=== PATIENT | male | born 1940 | race Caucasian/White ===

== ENCOUNTER 2016-09-14 10:23 | Day surgery (SDC) | payer MEDICARE, OTHER ==
[~2016-09-14 10:23] MED LIST: ALBUTEROL NEB (CONC) 2.5 MG/0.5 ML INHALATION ONE; ATROPINE SULFATE 0.4 MG/ML 1 ML VIAL IM ONE; LACTATED RINGERS 1,000 ML IV ONE; LACTATED RINGERS 1,000 ML IV SCH; LIDOCAINE 2% (PF) 20 MG/ML 10ML INHALATION ONE
[2016-09-14 10:48] VITALS: TEMP 98.3
[2016-09-14] MEDS ORDERED: LIDOCAINE 1% INJ 10MG/ML (20 ML MDV) ONE (11:38)
[2016-09-14] MEDS ORDERED: PROPOFOL 10 MG/ML 20 ML VIAL IV ONE (11:38)
[2016-09-14] MEDS ORDERED: LIDOCAINE 1% 20 ML VIAL (10MG/ML) FOR IV START INTRADERMA ONE (11:40)
[2016-09-14] MEDS ORDERED: LIDOCAINE 2% INJ 20 MG/ML INTRATRACH ONE (12:04)
[2016-09-14 12:36] VITALS: BP 143/71; PULSE 113; RESP 18
--- NOTE | 2016-09-14 23:13 | PCN ---
PROCEDURE: Bronchoscopy, bronchoalveolar lavage, therapeutic lavage and airway examination. PREOPERATIVE DIAGNOSIS: Retained secretions. POSTOPERATIVE DIAGNOSIS: Retained secretions. There was informed consent. There was universal timeout. BINGO MANAGER provided general anesthesia or unconscious sedation. The patient's procedure was done in Room #2. After the patient had been adequately sedated and being fully monitored, the bronchoscope was inserted through the right nostril. It was then passed through the right nasopharynx into the oropharynx. The hypopharynx was identified. Anterior commissure, true cords, false cords, arytenoids, piriform sinuses, right and left valleculae and epiglottis all appeared normal. After topicalization, the bronchoscope was pushed through the glottic opening into the trachea. There were some secretions noted in the left piriform sinus. The trachea appeared normal. Tracheal jodie was sharp. The right and left mainstem were topicalized. After topicalization, the right upper lobe and its 3 segments, the right middle lobe and its 2 segments, the right lower lobe and its 5 segments, left upper lobe proper and its 2 segments, lingula and its 2 segments and left lower lobe and its 4 segments were all evaluated. There was diffuse mild to moderate bronchitis throughout. There was mild hyperemia and erythema of the airways. There were secretions noted as well. They had sort of a slight yellow color to them. They were foamy. There were noted throughout both lungs. They were suctioned. The bronchoscope was then wedged into the right middle lobe. BAL took place. There were no immediate complications. The patient tolerated the procedure well. The bronchoscope was withdrawn and the patient will be recovered.
== END 2016-09-14 13:00 | disposition home or self-care (01) ==
LOC: ORWHC2ENDO 10:23
PROVIDERS: ATTEND Internal Medicine Critical Care Medicine
DX: J40 Bronchitis, not specified as acute or chronic (principal); J45.901 Unspecified asthma with (acute) exacerbation; J44.9 Chronic obstructive pulmonary disease, unspecified; Z87.891 Personal history of nicotine dependence; J20.9 Acute bronchitis, unspecified; Z79.52 Long term (current) use of systemic steroids; Z79.899 Other long term (current) drug therapy
CPT/HCPCS: 94640; 87798 ×4; 87496; 87498; 87529 ×2; 88108; 88305; 87252; 87502 ×2; 87070; 87205; 87116; 87102; 87206; 31624; J2001 ×3; J0461; J2704

== ENCOUNTER 2022-12-20 10:07 | Emergency (ER) | payer MEDICARE ==
--- NOTE | 2022-12-20 10:39 | ED ---
Recheck HPI - General Chief Complaint: Recheck/Abnormal Lab/Rx Stated Complaint: exposure to CO2 Time Seen by Provider: 12/20/22 10:22 Source: patient, RN notes reviewed Mode of arrival: ambulatory Limitations: no limitations - History of Present Illness Initial Comments: 82-year-old male presents emergency Department with concerns of possible carbon monoxide poisoning. Patient states that his neighbor was running his semitruck all night states that he woke up to the alarms going off at his house. He believes that there was exposure of CO2. He states his happened Tuesday and Tuesday. He did not feel well but states he has no current symptoms. Patient felt that he should come the emergency room for evaluation. - Related Data Home Medications Medication Instructions Recorded Confirmed Zithromas Unknown Dose 1 tab PO DAILY 09/10/16 predniSONE 10 g PO QAM 09/10/16 09/14/16 Allergies Allergy/AdvReac Type Severity Reaction Status Date / Time No Known Allergies Allergy Verified 12/20/22 10:19 Review of Systems ROS Statement: Those systems with pertinent positive or pertinent negative responses have been documented in the HPI. ROS Other: All systems not noted in ROS Statement are negative. Past Medical History Past Medical History: COPD Additional Past Medical History / Comment(s): CURRENT: CHRONIC COUGH FOR MONTHS. SPINAL STENOSIS. GASTRC ULCERS. ASPERGILLOSIS. History of Any Multi-Drug Resistant Organisms: None Reported Past Surgical History: Adenoidectomy, Cholecystectomy, Tonsillectomy Additional Past Surgical History / Comment(s): GASRTRIC SURGERY IN THE 1963. BILATERAL CATARACT. ORTHO: LEFT ROTATOR CUFF Past Anesthesia/Blood Transfusion Reactions: No Reported Reaction Smoking Status: Never smoker Past Alcohol Use History: None Reported Past Drug Use History: None Reported General Exam Limitations: no limitations General appearance: alert, in no apparent distress Head exam: Present: atraumatic, normocephalic, normal inspection Respiratory exam: Present: normal lung sounds bilaterally. Absent: respiratory distress, wheezes, rales, rhonchi, stridor Cardiovascular Exam: Present: regular rate, normal rhythm, normal heart sounds. Absent: systolic murmur, diastolic murmur, rubs, gallop, clicks Course Vital Signs 12/20/22 12/20/22 10:16 11:34 Temperature 98 F 97.8 F Pulse Rate 65 63 Respiratory 18 16 Rate Blood Pressure 137/76 127/62 O2 Sat by Pulse 100 98 Oximetry Medical Decision Making - Medical Decision Making Was pt. sent in by a medical professional or institution (JAYDE Guerrier, OUTBOUND SALES PROFESSIONAL, urgent care, hospital, or alf...) When possible be specific @ -No Did you speak to anyone other than the patient for history (EMS, parent, family, police, friend...)? What history was obtained from this source @ -No Did you review nursing and triage notes (agree or disagree)? Why? @ -I reviewed and agree with nursing and triage notes Were old charts reviewed (outside hosp., previous admission, EMS record, old EKG, old radiological studies, urgent care reports/EKG's, alf records)? Report findings @ -No old charts were reviewed Differential Diagnosis (chest pain, altered mental status, abdominal pain women, abdominal pain men, vaginal bleeding, weakness, fever, dyspnea, syncope, headache, dizziness, GI bleed, back pain, seizure, CVA, palpatations, mental health, musculoskeletal)? @ -Carbon monoxide exposure, Carbon monoxide poisoning EKG interpreted by me (3pts min.). @ -None X-rays interpreted by me (1pt min.). @ -None done CT interpreted by me (1pt min.). @ -None done U/S interpreted by me (1pt. min.). @ -None done What testing was considered but not performed or refused? (CT, X-rays, U/S, labs)? Why? @ -None What meds were considered but not given or refused? Why? @ -None Did you discuss the management of the patient with other professionals (professionals i.e. JAYDE Guerrier, OUTBOUND SALES PROFESSIONAL, lab, RT, psych nurse, social media specialist, aircraft inspection record clerk, teacher, correctional officer chief, nurse outreach case manager)? Give summary @ -No Was smoking cessation discussed for >3mins.? @ -No Was critical care preformed (if so, how long)? @ -No Were there social determinants of health that impacted care today? How? (Homelessness, low income, unemployed, alcoholism, drug addiction, transportation, low edu. Level, literacy, decrease access to med. care, long term, rehab)? @ -No Was there de-escalation of care discussed even if they declined (Discuss DNR or withdrawal of care, Hospice)? DNR status @ -No What co-morbidities impacted this encounter? (DM, HTN, Smoking, COPD, CAD, Cance r, CVA, ARF, Chemo, Hep., AIDS, mental health diagnosis, sleep apnea, morbid obesity)? @ -None Was patient admitted / discharged? Hospital course, mention meds given and route, prescriptions, significant lab abnormalities, going to OR and other pertinent info. @ -Discharged patient's carbon monoxide is 2.2 and is a symptomatically currently patient is discharged in stable condition. Undiagnosed new problem with uncertain prognosis? @ -No Drug Therapy requiring intensive monitoring for toxicity (Heparin, Nitro, Insulin, Cardizem)? @ -No Were any procedures done? @ -No] Diagnosis/symptom? @ -[Carbon monoxide exposure] Acute, or Chronic, or Acute on Chronic? @ -[Acute] Uncomplicated (without systemic symptoms) or Complicated (systemic symptoms)? @ -[Uncomplicated] Side effects of treatment? @ -[No] Exacerbation, Progression, or Severe Exacerbation? @ -[No] Poses a threat to life or bodily function? How? (Chest pain, [place], [place], pneumonia, PE, COPD, DKA, ARF, appy, cholecystitis, CVA, Diverticulitis, Homicidal, Suicidal, threat to staff... and all critical care pts) @ -[No] - Lab Data Lab Results 12/20/22 Range/Units 10:56 Carbon Monoxide, Quant 2.2 (<10.0) % Disposition Clinical Impression: Carbon monoxide exposure Disposition: HOME SELF-CARE Condition: Stable Instructions (If sedation given, give patient instructions): Carbon Monoxide Poisoning (ED) Additional Instructions: Please return to the Emergency Department if symptoms worsen or any other concerns. Is patient prescribed a controlled substance at d/c from ED?: No Referrals: None,Stated [Primary Care Provider] - 1-2 days Time of Disposition: 11:13
[2022-12-20 11:36] VITALS: BP 127/62; PULSE 63; RESP 16; TEMP 97.8
== END 2022-12-20 11:36 | disposition home or self-care (01) ==
LOC: EC 10:07
DX: T58.91XA Toxic effect of carbon monoxide from unspecified source, accidental (unintentional), initial encounter (principal); J44.9 Chronic obstructive pulmonary disease, unspecified
CPT/HCPCS: 82375; 99283